=== PATIENT | female | born 1980 | race Caucasian/White ===

== ENCOUNTER 2019-02-26 10:04 | Emergency (ER) | payer OTHER ==
[~2019-02-26] VITALS: Ht 170.2 cm; Wt 90.3 kg
[2019-02-26 10:37] VITALS: Ht 170.2 cm; Wt 90.3 kg
[2019-02-26 12:44] VITALS: BP 125/73
== END 2019-02-26 13:04 | disposition home or self-care (01) ==
LOC: ED 10:04
DX: J98.01 Acute bronchospasm (principal); F17.210 Nicotine dependence, cigarettes, uncomplicated; Z98.890 Other specified postprocedural states; Z71.6 Tobacco abuse counseling
CPT/HCPCS: 99406; J2930; J7030

== ENCOUNTER 2019-03-07 09:22 | Emergency (ER) | payer OTHER ==
[~2019-03-07] VITALS: Ht 167.6 cm; Wt 91.6 kg
[2019-03-07 09:28] VITALS: Ht 167.6 cm; Wt 91.6 kg
[2019-03-07 10:30] VITALS: BP 134/86
== END 2019-03-07 10:30 | disposition home or self-care (01) ==
LOC: ED 09:22
DX: J45.909 Unspecified asthma, uncomplicated (principal)